=== PATIENT | female | born 1980 | race Caucasian/White ===

== ENCOUNTER 2025-07-01 08:53 | Emergency (ER) | payer OTHER ==
[~2025-07-01] VITALS: Ht 162.6 cm; Wt 103.8 kg
[2025-07-01] MEDS ORDERED: SERTRALINE HCL50 MG PO (09:42)
[2025-07-01] MEDS ORDERED: LEVOTHYROXINE50 MCG PO (09:42)
[2025-07-01] MEDS ORDERED: VENTOLIN HFA18 GM INH (10:06)
[2025-07-01 10:31] VITALS: BP 149/87
== END 2025-07-01 10:32 | disposition home or self-care (01) ==
LOC: ED 08:53
DX: J98.9 Respiratory disorder, unspecified (principal); B97.89 Other viral agents as the cause of diseases classified elsewhere
CPT/HCPCS: 99282